=== PATIENT | male | born 1965 | race Caucasian/White ===

== ENCOUNTER 2020-10-16 04:34 | Day surgery (SDC) | payer OTHER ==
[2020-10-13 09:06] VITALS: BMI 25.0
[2020-10-16 06:42] LABS: HEMATOCRIT 43.5 % (35.4-49); HEMOGLOBIN 14.6 GM/dL (11.7-16.9); MCH 29.6 pg (25.7-33.7); MCHC 33.7 g/dl (32.0-35.9); MEAN CELL VOLUME 87.9 fl (80-96); MEAN PLT VOLUME 9.4 fl (7.5-11.1); PLATELET COUNT 245 K/MM3 (134-434); RBC 4.94 M/mm3 (4.00-5.60); WHITE BLOOD COUNT 7.6 K/mm3 (4.0-10.0)
[2020-10-16] MEDS ORDERED: methylPREDNISolone ACET (DEPO) 80 MG/1 ML VIAL ONE ×2 (07:22→07:59)
[2020-10-16] MEDS ORDERED: BUPIVACAINE HCL/PF 0.25% (2.5MG/ML) 10 ML VIAL ONE (07:23)
[2020-10-16 07:35] LABS: INR 1.04 (0.83-1.09); PROTHROMBIN TIME (PATIENT) 12.6 SEC (9.7-13.0)
[2020-10-16 07:38] LABS: ACTIVATED PTT 31.3 SECONDS (25.2-36.5)
[2020-10-16] MEDS ORDERED: PROPOFOL 20 ML ONE ×2 (07:46)
[2020-10-16] MEDS ORDERED: SUCCINYLCHOLINE CHLORIDE 200 MG/10 ML SYRINGE ONE (07:46)
[2020-10-16 08:17] VITALS: TEMP 97.7
[2020-10-16 09:12] VITALS: BP 120/65; PULSE 64
== END 2020-10-16 10:18 | disposition home or self-care (01) ==
LOC: JASU-SURG 04:34
PROVIDERS: ATTEND Neurological Surgery
PROC: 3E0R3BZ Introduction of Anesthetic Agent into Spinal Canal, Percutaneous Approach (ICD-10-PCS; 2020-10-16)
PROC: B01BYZZ Fluoroscopy of Spinal Cord using Other Contrast (ICD-10-PCS; 2020-10-16)
PROC: 3E0R33Z Introduction of Anti-inflammatory into Spinal Canal, Percutaneous Approach (ICD-10-PCS; principal; 2020-10-16 07:30)
DX: M51.26 Other intervertebral disc displacement, lumbar region (principal); M51.27 Other intervertebral disc displacement, lumbosacral region
CPT/HCPCS: 36415; 76000-TC-FY; 85027; 85610; 85730

== ENCOUNTER 2022-05-30 04:26 | Inpatient (IN) | payer BC ==
[2022-05-30 04:54] VITALS: BMI 24.8
[2022-05-30] MEDS ORDERED: ACETAMINOPHEN 500 MG TABLET (FP) PO ONE (05:21)
[2022-05-30] MEDS ORDERED: ACETAMINOPHEN 325 MG TABLET (FP) ONE (05:27)
[2022-05-30] MEDS ORDERED: ACETAMINOPHEN 1000 MG/100 ML BAG IVPB ONE (05:34)
[2022-05-30] MEDS ORDERED: ACETAMINOPHEN INJECTION 100 ML IVPB ONE (05:52)
[2022-05-30 06:29] LABS: BASO % 0.4 % (0-2.0); EOS % 1.4 % (0-4.5); HEMOGLOBIN 14.8 GM/dL (11.7-16.9); LYMPH % 17.7 % (8-40); MCH 29.2 pg (25.7-33.7); MCHC 33.6 g/dl (32.0-35.9); MEAN PLT VOLUME 9.6 fl (7.5-11.1); MONO % 7.4 % (3.8-10.2); NEUT % 73.1 % (42.8-82.8); PLATELET COUNT 234 10^3/uL (134-434); RBC 5.06 M/mm3 (4.00-5.60); WHITE BLOOD COUNT 9.6 K/mm3 (4.0-10.0)
[2022-05-30 06:38] LABS: INR 1.12 (0.83-1.09); PROTHROMBIN TIME (PATIENT) 12.9 SEC (9.7-13.0)
[2022-05-30 06:41] LABS: ACTIVATED PTT 32.9 SECONDS (25.2-36.5)
[2022-05-30 06:51] LABS: ALBUMIN 4.1 g/dl (3.4-5.0)
[2022-05-30 06:52] LABS: BLOOD UREA NITROGEN 13.6 mg/dL (7-18)
[2022-05-30 06:55] LABS: CREATININE 0.9 mg/dL (0.55-1.3)
[2022-05-30 06:56] LABS: BILIRUBIN,TOTAL 0.4 mg/dL (0.2-1); TOT PROT 7.6 g/dl (6.4-8.2)
[2022-05-30] MEDS ORDERED: CEFTRIAXONE 1 GM/50 ML BAG ONE (08:15)
[2022-05-30] MEDS: D5-1/2NS+20 MEQ KCL - 20 MEQ/1,000 ML INFUS.BAG IV SCH (15:29)
[2022-05-30 18:32] VITALS: RESP 18
[2022-05-30] MEDS ORDERED: HEPARIN NA (PORCINE) 5,000 UNITS/ML 1ML VIAL SQ SCH (22:00)
[2022-05-31] MEDS ORDERED: BUPIVACAINE HCL/PF 0.25% (2.5MG/ML) 10 ML VIAL ONE ×2 (07:58)
[2022-05-31] MEDS ORDERED: CEFTRIAXONE 1 GM in DEXTROSE 5%-WATER - 50 ML IVPB SCH (10:00)
[2022-05-31] MEDS ORDERED: KETOROLAC TROMETHAMINE 30 MG/1 ML VIAL ONE (10:39)
[2022-05-31] MEDS ORDERED: DEXAMETHASONE SOD PHOSPHATE 4 MG/1 ML VIAL ONE (10:39)
[2022-05-31] MEDS ORDERED: ROCURONIUM BROMIDE 50 MG/5 ML SYRINGE ONE (10:39)
[2022-05-31] MEDS ORDERED: LIDOCAINE HCL 2% 100 MG/5 ML DISP.SYRIN ONE (10:39)
[2022-05-31] MEDS ORDERED: PROPOFOL 40 ML ONE (10:41)
[2022-05-31] MEDS ORDERED: SUCCINYLCHOLINE CHLORIDE 200 MG/10 ML SYRINGE ONE (10:42)
[2022-05-31] MEDS ORDERED: MIDAZOLAM HCL 2 MG/2 ML SINGLE DOSE VIAL ONE (10:42)
[2022-05-31] MEDS ORDERED: DESFLURANE GAS 240 ML BOTTLE IH ONE (10:44)
[2022-05-31] MEDS ORDERED: BUPIVACAINE HCL/PF 2.5 MG/ML - 30 ML VIAL IJ ONE (11:27)
[2022-05-31] MEDS ORDERED: PROMETHAZINE HCL 25 MG/1 ML VIAL IVPUSH PRN ×2 (12:12→12:23)
[2022-05-31] MEDS ORDERED: ONDANSETRON 4 MG/2 ML VIAL IVPUSH PRN ×2 (12:12→12:23)
[2022-05-31] MEDS ORDERED: LACTATED RINGERS SOLUTION 1,000 ML IV SCH (12:15)
[2022-05-31] MEDS ORDERED: KETOROLAC TROMETHAMINE 15 MG/ML VIAL IVPUSH PRN (12:19)
[2022-05-31] MEDS ORDERED: oxyCODONE HCL 5 MG TABLET PO PRN (12:20)
[2022-05-31 14:43] LABS: BASO % 0.3 % (0-2.0); EOS % 0.3 % (0-4.5); HEMATOCRIT 43.6 % (35.4-49); HEMOGLOBIN 14.2 GM/dL (11.7-16.9); LYMPH % 6.7 % (8-40); MCH 28.7 pg (25.7-33.7); MCHC 32.7 g/dl (32.0-35.9); MEAN CELL VOLUME 87.9 fl (80-96); MEAN PLT VOLUME 9.3 fl (7.5-11.1); MONO % 2.6 % (3.8-10.2); NEUT % 90.1 % (42.8-82.8); PLATELET COUNT 234 10^3/uL (134-434); RBC 4.96 M/mm3 (4.00-5.60); RDW 13.3 % (11.9-15.9); WHITE BLOOD COUNT 15.9 K/mm3 (4.0-10.0)
[2022-05-31 15:04] LABS: ALBUMIN 3.4 g/dl (3.4-5.0); BLOOD UREA NITROGEN 8.6 mg/dL (7-18); CALCIUM 9.1 mg/dL (8.5-10.1)
[2022-05-31 15:07] LABS: CREATININE 0.9 mg/dL (0.55-1.3)
[2022-05-31 15:09] LABS: BILIRUBIN,TOTAL 0.8 mg/dL (0.2-1); TOT PROT 6.6 g/dl (6.4-8.2)
[2022-05-31] MEDS: LACTATED RINGERS SOLUTION 1,000 ML IV SCH (16:29)
[2022-05-31] MEDS: D5-1/2NS+20 MEQ KCL - 20 MEQ/1,000 ML INFUS.BAG IV SCH (16:30)
[2022-05-31] MEDS: HEPARIN NA (PORCINE) 5,000 UNITS/ML 1ML VIAL SQ SCH (21:28)
[2022-06-01] MEDS ORDERED: ONDANSETRON 4 MG/2 ML VIAL IVPUSH PRN (00:03)
[2022-06-01] MEDS: LACTATED RINGERS SOLUTION 1,000 ML IV SCH ×2 (06:42→18:05)
[2022-06-01 10:00] LABS: BASO % 0.2 % (0-2.0); EOS % 0.2 % (0-4.5); HEMATOCRIT 44.5 % (35.4-49); HEMOGLOBIN 14.6 GM/dL (11.7-16.9); LYMPH % 15.3 % (8-40); MCH 28.9 pg (25.7-33.7); MCHC 32.8 g/dl (32.0-35.9); MEAN CELL VOLUME 88.1 fl (80-96); MEAN PLT VOLUME 9.8 fl (7.5-11.1); MONO % 8.8 % (3.8-10.2); NEUT % 75.5 % (42.8-82.8); PLATELET COUNT 240 10^3/uL (134-434); RBC 5.05 M/mm3 (4.00-5.60); RDW 13.2 % (11.9-15.9); WHITE BLOOD COUNT 15.1 K/mm3 (4.0-10.0)
[2022-06-01] MEDS: HEPARIN NA (PORCINE) 5,000 UNITS/ML 1ML VIAL SQ SCH ×2 (10:01→21:52)
[2022-06-01 10:20] LABS: ALBUMIN 3.4 g/dl (3.4-5.0); CALCIUM 8.7 mg/dL (8.5-10.1)
[2022-06-01 10:21] LABS: BLOOD UREA NITROGEN 8.1 mg/dL (7-18)
[2022-06-01 10:24] LABS: CREATININE 1.1 mg/dL (0.55-1.3)
[2022-06-01 10:25] LABS: TOT PROT 6.8 g/dl (6.4-8.2)
[2022-06-01] MEDS: ACETAMINOPHEN 500 MG TABLET (FP) PO PRN ×2 (12:50→20:24)
[2022-06-02 09:06] LABS: BASO % 0.9 % (0-2.0); EOS % 1.7 % (0-4.5); HEMOGLOBIN 14.1 GM/dL (11.7-16.9); LYMPH % 29.4 % (8-40); MCH 29.3 pg (25.7-33.7); MCHC 33.6 g/dl (32.0-35.9); MEAN CELL VOLUME 87.3 fl (80-96); MONO % 9.9 % (3.8-10.2); NEUT % 58.1 % (42.8-82.8); PLATELET COUNT 215 10^3/uL (134-434); RDW 13.4 % (11.9-15.9); WHITE BLOOD COUNT 8.1 K/mm3 (4.0-10.0)
[2022-06-02 09:30] LABS: CALCIUM 9.2 mg/dL (8.5-10.1)
[2022-06-02 09:31] LABS: ALBUMIN 3.4 g/dl (3.4-5.0); BLOOD UREA NITROGEN 7.7 mg/dL (7-18)
[2022-06-02 09:34] LABS: CREATININE 0.9 mg/dL (0.55-1.3)
[2022-06-02 09:36] LABS: BILIRUBIN,TOTAL 0.9 mg/dL (0.2-1); TOT PROT 6.5 g/dl (6.4-8.2)
[2022-06-02] MEDS: HEPARIN NA (PORCINE) 5,000 UNITS/ML 1ML VIAL SQ SCH (10:08)
[2022-06-02] MEDS: ACETAMINOPHEN 500 MG TABLET (FP) PO PRN (11:33)
[2022-06-02 14:42] VITALS: BP 111/62; PULSE 72; TEMP 98.2
[2022-06-02] MEDS: LACTATED RINGERS SOLUTION 1,000 ML IV SCH (15:13)
== END 2022-06-02 17:25 | disposition home or self-care (01) | DRG 419 ==
LOC: JER 04:26 → JERBED 05:40 → J6S 18:07
PROVIDERS: ADMIT Family Medicine; ATTEND Family Medicine
PROC: 0FT44ZZ Resection of Gallbladder, Percutaneous Endoscopic Approach (ICD-10-PCS; principal; 2022-05-31 11:00)
DX: K81.1 Chronic cholecystitis (principal); N40.0 Benign prostatic hyperplasia without lower urinary tract symptoms
CPT/HCPCS: 36415; 76705-TC; 80053; 82150; 83690; 85025; 85610; 85730; 86850; 86900; 86901; 88304-TC; 93005; 93010; 94760; 99285-25; C9803-CS; J1644; U0003; U0005